=== PATIENT | male | born 1935 | race Caucasian/White ===

== ENCOUNTER 2022-11-26 10:04 | Inpatient (IN) | payer MEDICARE, OTHER ==
[~2022-11-26] VITALS: Ht 175.3 cm; Wt 104.0 kg
[2022-11-26] VITALS (21 sets, daily range): BP systolic 93–137; BP diastolic 30–67
[2022-11-26] MEDS ORDERED: pantoprazole 40mg IV 80 MG in normal saline 100ml IV soln 100 ML IV ONE (11:10)
[2022-11-26] MEDS ORDERED: normal saline 1000ML IV soln IVB ONE (11:10)
[2022-11-26] MEDS ORDERED: ondansetron/PF 4mg/2ml inj IV ONE (11:10)
[2022-11-26 11:16] LABS: BASOPHILS # (AUTO) 0.1 X10'3 (0-0.2); BASOPHILS % (AUTO) 0.3 % (0-1); EOSINOPHILS % (AUTO) 0.2 % (0-6); LYMPHOCYTES # (AUTO) 1.4 X10'3 (1.1-4.8); LYMPHOCYTES % (AUTO) 7.6 % (21-51); MEAN CORPUSCULAR HEMOGLOBIN 20.7 PG (27.0-31.0); MEAN CORPUSCULAR HGB CONC 26.6 g/dL (33.0-36.5); MEAN PLATELET VOLUME 10.2 FL (7.4-10.4); MONOCYTES # (AUTO) 8.4 X10'3 (0-0.9); MONOCYTES % (AUTO) 44.1 % (2-12); NEUTROPHILS # (AUTO) 9.1 X10'3 (1.8-7.7); NEUTROPHILS % (AUTO) 47.8 % (42-75); RED CELL DISTRIBUTION WIDTH 20.6 % (11.5-14.5)
[2022-11-26 11:22] LABS: ALANINE AMINOTRANSFERASE 15 U/L (12-78); ALBUMIN 2.4 G/DL (3.4-5.0); ALBUMIN/GLOBULIN RATIO 0.8 (1.1-1.5); ALKALINE PHOSPHATASE 92 IU/L (46-116); ANION GAP 15 (8-16); ASPARTATE AMINO TRANSFERASE 12 U/L (10-37); BILIRUBIN,TOTAL 0.3 MG/DL (0.1-1.0); BLOOD UREA NITROGEN 59 MG/DL (7-18); BUN/CREATININE RATIO 24.1 (5.4-32.0); CALCIUM 7.3 MG/DL (8.5-10.1); CHLORIDE 114 MMOL/L (99-107); CREATININE 2.45 MG/DL (0.60-1.10); GLUCOSE 121 MG/DL (70-104); LIPASE < 50 U/L (73-393); POTASSIUM 4.7 MMOL/L (3.5-5.1); SODIUM 148 MMOL/L (135-145); TOTAL CARBON DIOXIDE 18.6 MMOL/L (24-32); TOTAL PROTEIN 5.4 G/DL (6.4-8.2); eGFR 25 ML/MIN
[2022-11-26 11:24] LABS: RED BLOOD COUNT 1.64 X10'6 (4.70-6.10); WHITE BLOOD COUNT 19.7 X10'3 (4.5-11.0)
[2022-11-26 11:25] LABS: PLATELET COUNT 117 X10'3 (140-440)
[2022-11-26] MEDS: morphine 4 MG/ML inj SYRINge IV PRN ×2 (11:26→15:46)
[2022-11-26 11:28] LABS: HEMATOCRIT 12.8 % (42.0-52.0); HEMOGLOBIN 3.4 g/dl (14.0-17.9)
[2022-11-26] MEDS ORDERED: CefTRIAXone 2gm/D5W 50ml BAG 50 ML IV ONE (11:35)
[2022-11-26 11:42] LABS: ANISOCYTOSIS 3+; ELLIPTOCYTES 1+; MICROCYTOSIS 1+; NUCLEATED RED BLOOD CELLS 2 /100WBC (0-0); PLATELET ESTIMATE DECREASED; TEAR DROP CELLS 1+; TOTAL CELLS COUNTED 100
[2022-11-26 11:43] LABS: HYPOCHROMASIA 2+
[2022-11-26 12:34] LABS: MEAN CORPUSCULAR HEMOGLOBIN 19.8 PG (27.0-31.0); MEAN CORPUSCULAR HGB CONC 24.8 g/dL (33.0-36.5); MEAN PLATELET VOLUME 10.3 FL (7.4-10.4); PLATELET COUNT 109 X10'3 (140-440); RED BLOOD COUNT 1.41 X10'6 (4.70-6.10); RED CELL DISTRIBUTION WIDTH 20.7 % (11.5-14.5)
[2022-11-26 12:37] LABS: HEMATOCRIT 11.3 % (42.0-52.0); HEMOGLOBIN 2.8 g/dl (14.0-17.9)
[2022-11-26] MEDS: octreotide inj. 1,250 MCG in normal saline 250ml IV soln 243.75 ML IV SCH ×2 (12:50→20:41)
[2022-11-26] MEDS ORDERED: midazolam 100mg in NS 100ml 100 ML IV PRN (12:55)
--- NOTE | 2022-11-26 13:03 | NUR ---
1238 pulseless CPRinitiated 970ml blood transfusion increased 1240 bicarb and epi given 1241 rythmn check PEA epi 1242 intubation 1244 positve color change, 23 cm to teeth rythmn check sinus tach CPR cessation rapid bllod transfusion started. 3 units infused at 0110
[2022-11-26 13:09] LABS: ABG HCO3 13.8 mmol/L (22.0-26.0); ABG PCO2 (T) 42.4 mmHg (35.0-48.0); ABG PO2 (T) 430.5 mmHg (75.0-100.0); ALLEN'S TEST POSITIVE; PATIENT TEMPERATURE 36.4; PEEP 5 cm H2O; RESPIRATORY RATE 18 b/min; TIDAL VOLUME 500 mL; TOTAL HEMOGLOBIN < 4.7 G/dl (14.0-17.9)
--- NOTE | 2022-11-26 13:14 | NUR ---
notified of current status
[2022-11-26] MEDS ORDERED: CALCIUM GLUC 1gm/50ml NACL,iso 50 ML IV ONE (13:25)
[2022-11-26] MEDS ORDERED: tranexamic acid inj. 1,000 MG in normal saline 100ml IV soln 90 ML IV ONE (13:30)
[2022-11-26] MEDS: FENTANYL-0.9 % NACL/PF 100 ML IV PRN ×3 (13:57→21:26)
[2022-11-26] MEDS ORDERED: fentaNYL/PF 50MCG/1 ML 2ML syringe ONE (14:04)
[2022-11-26] MEDS ORDERED: MIDAZolam 1 MG/ML 5ML VIAL ONE (14:04)
[2022-11-26 14:05] LABS: HEMATOCRIT 23.4 % (42.0-52.0); MEAN CORPUSCULAR HEMOGLOBIN 23.5 PG (27.0-31.0); MEAN CORPUSCULAR HGB CONC 27.3 g/dL (33.0-36.5); MEAN CORPUSCULAR VOLUME 86.1 FL (78-98); MEAN PLATELET VOLUME 10.5 FL (7.4-10.4); PLATELET COUNT 86 X10'3 (140-440); RED BLOOD COUNT 2.72 X10'6 (4.70-6.10); RED CELL DISTRIBUTION WIDTH 19.6 % (11.5-14.5); WHITE BLOOD COUNT 24.4 X10'3 (4.5-11.0)
[2022-11-26 14:07] LABS: HEMOGLOBIN 6.4 g/dl (14.0-17.9)
[2022-11-26] MEDS: NORepinephrine 8mg/ 250ml NS 250 ML IV SCH ×2 (14:55→20:40)
[2022-11-26] MEDS ORDERED: mag hydrox/Alum hydrox/simeth 30ml oral suspension PO PRN (15:05)
[2022-11-26] MEDS ORDERED: LIDOcaine 2% 10ml TOPICAL JELLY (Urojet) TP ONE (15:05)
[2022-11-26] MEDS ORDERED: potassium Cl 40MEQ/1/2NS 520ml 520 ML IV PRN (15:05)
[2022-11-26] MEDS ORDERED: magnesium Cl slow-release 64mg tablet PO PRN (15:05)
[2022-11-26] MEDS ORDERED: potassium Cl 20 mEq SR tablet PO PRN ×2 (15:05)
[2022-11-26] MEDS ORDERED: acetaminophen 325mg tablet PO PRN (15:05)
[2022-11-26] MEDS ORDERED: magnesium hydroxide 30ml (MOM) UD suspension PO PRN (15:05)
[2022-11-26] MEDS ORDERED: magnesium 4gm in 100ml NS 100 ML IV PRN (15:05)
[2022-11-26] MEDS ORDERED: ondansetron/PF 4mg/2ml inj IV PRN (15:05)
--- NOTE | 2022-11-26 15:40 | NUR ---
to floor 1525. On norepi, 4th unit of PRBC finished on the way, bolusing 1L NS now. on Norepi at 0.1mcg/kg/min. TXA was done infusing aswell. GI nurses present with equipment to scope patient. 1540 MD in to scope ptl.
[2022-11-26] MEDS ORDERED: LidoCAINE 2% Topical Jelly 11mL syringe TOP ONE (15:45)
[2022-11-26] MEDS: normal saline 1000ml 1,000 ML IV SCH ×2 (15:47→21:45)
[2022-11-26] MEDS ORDERED: heparin, porcine 5000 units/ml vial SQ SCH (16:00)
[2022-11-26] MEDS: pantoprazole 40MG/NS 100ML BAG 100 ML IV SCH ×2 (16:00→21:26)
[2022-11-26] MEDS ORDERED: epiNEPHrine 0.1mg/ml 10ml syringe ONE (16:25)
[2022-11-26] MEDS ORDERED: NO HOME MEDS (16:54)
[2022-11-26] MEDS ORDERED: ipratropium/albuterol 3ml nebule ONE (16:54)
[2022-11-26] MEDS: ipratropium/albuterol 3ml nebule NEB SCH ×3 (16:56→23:34)
[2022-11-26 17:18] LABS: LYMPHOCYTES # (AUTO) 1.2 X10'3 (1.1-4.8); MONOCYTES # (AUTO) 12.2 X10'3 (0-0.9); PLATELET COUNT 96 X10'3 (140-440)
[2022-11-26 17:19] LABS: BASOPHILS % (AUTO) 0.1 % (0-1); EOSINOPHILS % (AUTO) 0.1 % (0-6); LYMPHOCYTES % (AUTO) 4.1 % (21-51); MEAN PLATELET VOLUME 10.3 FL (7.4-10.4); MONOCYTES % (AUTO) 41.9 % (2-12); NEUTROPHILS # (AUTO) 15.6 X10'3 (1.8-7.7); NEUTROPHILS % (AUTO) 53.8 % (42-75); RED CELL DISTRIBUTION WIDTH 18.1 % (11.5-14.5)
[2022-11-26 17:31] LABS: ALANINE AMINOTRANSFERASE 250 U/L (12-78); ALBUMIN 2.3 G/DL (3.4-5.0); ALBUMIN/GLOBULIN RATIO 0.9 (1.1-1.5); ALKALINE PHOSPHATASE 93 IU/L (46-116); ANION GAP 11 (8-16); ASPARTATE AMINO TRANSFERASE 233 U/L (10-37); BILIRUBIN,TOTAL 1.1 MG/DL (0.1-1.0); BLOOD UREA NITROGEN 62 MG/DL (7-18); BUN/CREATININE RATIO 28.7 (5.4-32.0); CALCIUM 6.5 MG/DL (8.5-10.1); CHLORIDE 117 MMOL/L (99-107); CREATININE 2.16 MG/DL (0.60-1.10); GLUCOSE 175 MG/DL (70-104); SODIUM 149 MMOL/L (135-145); TOTAL CARBON DIOXIDE 20.6 MMOL/L (24-32); TOTAL PROTEIN 4.9 G/DL (6.4-8.2); eGFR 29 ML/MIN
[2022-11-26] MEDS ORDERED: digoxin 250mcg/ml 2ml ampule IV STA (17:36)
--- NOTE | 2022-11-26 17:48 | NUR ---
Md aware of HR 160. Giving 2 more units PRBC. Trying Dig 500mcg as he believes it may be Aflutter. LA down, making good urine.
[2022-11-26] MEDS: propofol 1000mg/100ml bottle 100 ML IV SCH (17:56)
[2022-11-26 18:26] LABS: HEMATOCRIT 24.5 % (42.0-52.0); HEMOGLOBIN 7.3 g/dl (14.0-17.9); MEAN CORPUSCULAR HEMOGLOBIN 22.8 PG (27.0-31.0); MEAN CORPUSCULAR HGB CONC 29.6 g/dL (33.0-36.5); MEAN CORPUSCULAR VOLUME 77.2 FL (78-98); RED BLOOD COUNT 3.18 X10'6 (4.70-6.10)
--- NOTE | 2022-11-26 18:35 | NUR ---
I have received report and assumed care of an 87 year old male admitted earlier in the day from the ER department with dyspnea, GIB (Hgb 2.8) and a breife code blue with CPR. Dr. Foley preformed a bedside endoscopy, please see his notes for finding and treatment. Pt is on Diprivan and fentanyl for sedation and pain management, Protonix and Sandostatin for GIB, Levophed via CVL to keep MAP greater then 65. Per MD orders cooling blanket in place to keep Temperature around 37 degrees. Pt has large amount of white creamy secretions via ET suctioning. Pt opens eyes to painful stimuli. Pt is in a ST with moments of Afib with RVR rate up to 160. fowler cath in place to gravity. Assessment complete.
[2022-11-26 18:41] LABS: NUCLEATED RED BLOOD CELLS 3 /100WBC (0-0); PLATELET ESTIMATE DECREASED; TOTAL CELLS COUNTED 100
[2022-11-26 18:42] LABS: ANISOCYTOSIS 3+; ELLIPTOCYTES 1+; MICROCYTOSIS 13; TEAR DROP CELLS 1+
[2022-11-26 18:45] LABS: APTT 34 SECONDS (22-32)
[2022-11-26] MEDS: K and/or MAG REPLACEMENT MC SCH (20:00)
[2022-11-26] MEDS: docusate sod 100mg capsule PO SCH (20:00)
[2022-11-26 22:43] LABS: COLOR,URINE YELLOW (Yellow); GLUCOSE, URINE NEGATIVE (Neg); KETONES,URINE NEGATIVE (Neg); LEUKOCYTE ESTERASE ,URINE NEGATIVE (Neg); NITRITES, URINE NEGATIVE (Neg); OCCULT BLOOD,URINE MODERATE (Neg); PH,URINE 5.5 (4.8-8.0); PROTEIN,URINE 30 mg/dl (Neg); UROBILINOGEN,URINE 0.2 E.U/dL (0.2-1.0)
[2022-11-26 22:45] LABS: EOSINOPHILS % (AUTO) 0 % (0-6); HEMOGLOBIN 10.1 g/dl (14.0-17.9); LYMPHOCYTES # (AUTO) 0.5 X10'3 (1.1-4.8)
[2022-11-26 22:50] LABS: BASOPHILS # (AUTO) 0.1 X10'3 (0-0.2); BASOPHILS % (AUTO) 0.3 % (0-1); HEMATOCRIT 32.5 % (42.0-52.0); MEAN CORPUSCULAR HEMOGLOBIN 25.7 PG (27.0-31.0); MEAN CORPUSCULAR HGB CONC 31.1 g/dL (33.0-36.5); MEAN CORPUSCULAR VOLUME 82.8 FL (78-98); MEAN PLATELET VOLUME 10.5 FL (7.4-10.4); MONOCYTES # (AUTO) 18.2 X10'3 (0-0.9); MONOCYTES % (AUTO) 38.8 % (2-12); NEUTROPHILS # (AUTO) 28.1 X10'3 (1.8-7.7); NEUTROPHILS % (AUTO) 59.9 % (42-75); PLATELET COUNT 83 X10'3 (140-440); RED BLOOD COUNT 3.93 X10'6 (4.70-6.10); RED CELL DISTRIBUTION WIDTH 18.4 % (11.5-14.5)
[2022-11-26 22:54] LABS: CLARITY,URINE SLIGHTLY CLOUDY (Clear); UA COLLECTION TYPE OTHER
[2022-11-26 22:56] LABS: HYALINE CASTS 0-3 /LPF (NEGATIVE); SQUAMOUS EPITHELIAL CELL,UR NONE SEEN /LPF (FEW); WBC,URINE NONE SEEN /HPF (0-4)
[2022-11-26 22:57] LABS: AMORPHOUS URATES 1+; BACTERIA,URINE NONE SEEN /HPF (Neg)
[2022-11-26] MEDS ORDERED: levoFLOXACIN-Levaquin 750MG/D5 150 ML IV STA (23:07)
--- NOTE | 2022-11-26 23:23 | NUR ---
spoke to Dr. marion regarding elevated wbc new orders for antibiotic
[2022-11-27] VITALS (34 sets, daily range): BP systolic 93–144; BP diastolic 27–54
[2022-11-27] MEDS: normal saline 1000ml 1,000 ML IV SCH
[2022-11-27 00:43] LABS: NUCLEATED RED BLOOD CELLS 2 /100WBC (0-0); TOTAL CELLS COUNTED 100
[2022-11-27 00:44] LABS: ANISOCYTOSIS 2+; PLATELET ESTIMATE DECREASED
[2022-11-27 00:48] LABS: BURR CELLS 1+; ELLIPTOCYTES FEW; MICROCYTOSIS 1+
[2022-11-27 00:49] LABS: SCHISTOCYTES FEW
[2022-11-27 00:50] LABS: POLYCHROMASIA FEW
[2022-11-27 00:52] LABS: HYPOCHROMASIA 1+
[2022-11-27 03:03] LABS: EOSINOPHILS % (AUTO) 0 % (0-6); HEMOGLOBIN 9.2 g/dl (14.0-17.9); LYMPHOCYTES # (AUTO) 0.6 X10'3 (1.1-4.8); LYMPHOCYTES % (AUTO) 1.1 % (21-51)
[2022-11-27 03:09] LABS: BASOPHILS % (AUTO) 0.1 % (0-1); HEMATOCRIT 30.5 % (42.0-52.0); MEAN CORPUSCULAR HEMOGLOBIN 25.1 PG (27.0-31.0); MEAN CORPUSCULAR HGB CONC 30.2 g/dL (33.0-36.5); MEAN PLATELET VOLUME 10.6 FL (7.4-10.4); MONOCYTES # (AUTO) 15.9 X10'3 (0-0.9); MONOCYTES % (AUTO) 30.9 % (2-12); NEUTROPHILS % (AUTO) 67.9 % (42-75); PLATELET COUNT 76 X10'3 (140-440); RED BLOOD COUNT 3.67 X10'6 (4.70-6.10)
[2022-11-27] MEDS: ipratropium/albuterol 3ml nebule NEB SCH ×6 (03:17→22:59)
[2022-11-27 03:23] LABS: APTT 34 SECONDS (22-32)
[2022-11-27 03:28] LABS: WHITE BLOOD COUNT 51.6 X10'3 (4.5-11.0)
[2022-11-27 03:36] LABS: ALANINE AMINOTRANSFERASE 211 U/L (12-78); ALBUMIN 1.9 G/DL (3.4-5.0); ALBUMIN/GLOBULIN RATIO 0.7 (1.1-1.5); ALKALINE PHOSPHATASE 85 IU/L (46-116); ANION GAP 12 (8-16); ASPARTATE AMINO TRANSFERASE 172 U/L (10-37); BILIRUBIN,TOTAL 0.9 MG/DL (0.1-1.0); BLOOD UREA NITROGEN 58 MG/DL (7-18); CALCIUM 6.4 MG/DL (8.5-10.1); CHLORIDE 120 MMOL/L (99-107); CREATININE 2.15 MG/DL (0.60-1.10); GLUCOSE 170 MG/DL (70-104); MAGNESIUM 1.7 MG/DL (1.5-2.4); PHOSPHORUS 4.5 MG/DL (2.3-4.5); POTASSIUM 4.1 MMOL/L (3.5-5.1); SODIUM 151 MMOL/L (135-145); TOTAL CARBON DIOXIDE 18.9 MMOL/L (24-32); TOTAL PROTEIN 4.6 G/DL (6.4-8.2); TRIGLYCERIDES 110 MG/DL (20-135); eGFR 29 ML/MIN
[2022-11-27] MEDS: FENTANYL-0.9 % NACL/PF 100 ML IV PRN ×2 (03:45→18:14)
[2022-11-27] MEDS: pantoprazole 40MG/NS 100ML BAG 100 ML IV SCH ×5 (03:45→18:15)
[2022-11-27 03:51] LABS: ABG BASE EXCESS -11.2 mmol/L (-2.0-2.0); ABG HCO3 16.4 mmol/L (22.0-26.0); ABG PCO2 (T) 43.1 mmHg (35.0-48.0); ALLEN'S TEST Modified; FCOHb 1.1 % (0.0-3.9); FMetHb 0.5 % (0.0-1.5); FO2Hb 92.5 % (94-97); PATIENT TEMPERATURE 36.8; TOTAL HEMOGLOBIN 10.5 G/dl (14.0-17.9)
--- NOTE | 2022-11-27 04:00 | NUR ---
spoke to dr de la rosa regarding abg results and elevated WBC greater then 50. no new orders regarding WBC however bicarb drip order to correct ABG.
[2022-11-27] MEDS ORDERED: SODIUM BICARB 150mEq/D5W 1L 1,000 ML IV ONE ×2 (04:05→14:20)
--- NOTE | 2022-11-27 06:15 | NUR ---
report given to rec rn plan of care reviewed
--- NOTE | 2022-11-27 06:30 | NUR ---
Patient in room ICU 2043. I have received report from bj and had the opportunity to ask questions and assume patient care.
[2022-11-27 06:38] LABS: RESPIRATORY RATE 18 b/min
[2022-11-27 06:39] LABS: PEEP 5 cm H2O; TIDAL VOLUME 500 mL
[2022-11-27] MEDS: docusate sod 100mg capsule PO SCH (08:00)
[2022-11-27] MEDS ORDERED: levoFLOXACIN-Levaquin 750MG/D5 150 ML IV SCH (08:00)
[2022-11-27] MEDS: K and/or MAG REPLACEMENT MC SCH ×2 (08:00→20:00)
[2022-11-27] MEDS: CefTRIAXone/D5W-Rocephin 1gm 50 ML IV SCH (08:08)
[2022-11-27] MEDS: propofol 1000mg/100ml bottle 100 ML IV SCH (09:20)
--- NOTE | 2022-11-27 10:00 | NUR ---
pt opens eyes- doesnt follow commands or focus. questionable corneal reflex, no cough or gag. large frothy creamy white sx via ett. bs 214. update to md, hyperglycemic protocol ordered, serial h and h, iv changed r/t increased sodium.
[2022-11-27] MEDS ORDERED: furosemide 40mg/4ml inj IV ONE (11:10)
[2022-11-27] MEDS ORDERED: glucagon, human recombinant 1mg kit SUBCUT PRN (11:15)
[2022-11-27] MEDS ORDERED: DEXTROSE 15 GM of carb/4 tabs (each vial/BOTTLE has 4 tablets) PO PRN ×2 (11:15)
[2022-11-27] MEDS ORDERED: dextrose 50%-water 50ml dispensing syringe IV PRN ×2 (11:15)
[2022-11-27] MEDS ORDERED: MESSAGE TO PHARMACY PO ONE (11:15)
[2022-11-27] MEDS ORDERED: sodium chloride 0.45% 1,000 ML IV SCH (11:25)
[2022-11-27 12:07] LABS: HEMOGLOBIN A1C 5.2 % (4.5-6.2)
[2022-11-27 12:19] LABS: HEMATOCRIT 31.1 % (42.0-52.0); HEMOGLOBIN 9.4 g/dl (14.0-17.9); MEAN CORPUSCULAR HGB CONC 30.2 g/dL (33.0-36.5); MEAN PLATELET VOLUME 10.5 FL (7.4-10.4); PLATELET COUNT 77 X10'3 (140-440); RED BLOOD COUNT 3.75 X10'6 (4.70-6.10); RED CELL DISTRIBUTION WIDTH 18.1 % (11.5-14.5)
--- NOTE | 2022-11-27 12:27 | NUR ---
Initial: Pt admit for GIB. Per ED note a code was called with CPR initiated and pt ultimately intubated. Pt s/p EGD with findings of multiple duodenal ulcers which were clipped per MD note. Propofol visualized at bedside to be running at 4.9 mL/hr providing 129 kcal/day. OGT in place though no TF consult at this time. TF recs below for if expected prolonged intubation and to receive nutrition support. D/w MD patient's hypernatremia, pt now started on 5NS at 85 mL/hr per MD. Noted BG range 121-214 mg/dL since admit with no PMH DM. A1c obtained resulted in 5.2%, not suggestive of DM per ADA guidelines. LBM 11/26 documented as copious. Will continue to follow closely. Recommendations: 1) IF TF and Propofol at 4.9 mL/hr (129 kcal/day), continuous Vital AF with 80 mL/hr goal rate to provide 1920 mL volume/day, 2304 kcal, 144 g protein, and 1557 mL water 2) Monitor Propofol and need to adjust recs 3) IF TF, additional 150 mL water flush Q4H; monitor serum Na 4) IF TF, prealbumin q Saturday/; daily scaled weights 5) Bowel care per MD 6) Advance to regular diet as medically indicated following extubation. Addendum: 11/27/22 at [address] Amended: Links added.
[2022-11-27 12:45] LABS: WHITE BLOOD COUNT 60.6 X10'3 (4.5-11.0)
[2022-11-27 13:24] LABS: ANISOCYTOSIS 2+; NUCLEATED RED BLOOD CELLS 1 /100WBC (0-0); PLATELET ESTIMATE DECREASED; TOTAL CELLS COUNTED 100
[2022-11-27 13:25] LABS: ELLIPTOCYTES FEW; LARGE PLATELETS FEW; MICROCYTOSIS 1+
[2022-11-27 13:26] LABS: BURR CELLS FEW; POLYCHROMASIA FEW
[2022-11-27] MEDS ORDERED: octreotide inj. 500 MCG in normal saline 100ml IV soln 97.5 ML IV SCH (13:50)
[2022-11-27] MEDS: octreotide inj. 500 MCG in normal saline 100ml IV soln 97.5 ML IV SCH (14:15)
[2022-11-27] MEDS: insulin Lispro (HumaLOG) vial - multi-dose SQ SCH ×2 (14:51→20:26)
[2022-11-27 15:54] LABS: ABG BASE EXCESS -11.3 mmol/L (-2.0-2.0); ABG PCO2 (T) 49.1 mmHg (35.0-48.0); ABG PO2 (T) 73.1 mmHg (75.0-100.0); ALLEN'S TEST POSITIVE; FCOHb 0.1 % (0.0-3.9); FMetHb 0.4 % (0.0-1.5); FO2Hb 92.5 % (94-97); PEEP 5 cm H2O; RESPIRATORY RATE 18 b/min; TIDAL VOLUME 500 mL; TOTAL HEMOGLOBIN 10.5 G/dl (14.0-17.9)
--- NOTE | 2022-11-27 16:00 | NUR ---
cooling blanket off and on to keep temp less than 37. abgs reported to md. vent changes , iv changed, lasix now ordered rt. pt now moving both arms. hgb stable
[2022-11-27] MEDS: dextrose 5%-water 1,000 ML IV SCH (16:25)
[2022-11-27] MEDS: sodium bicarbonate (8.4%) inj. 150 MEQ in dextrose 5%-water 850 ML IV SCH ×2 (16:25→21:52)
[2022-11-27] MEDS: furosemide 20 MG/2 ML vial IV SCH ×2 (17:48→20:22)
[2022-11-27 18:06] LABS: HEMATOCRIT 29.4 % (42.0-52.0); MEAN CORPUSCULAR HEMOGLOBIN 25.1 PG (27.0-31.0); MEAN CORPUSCULAR HGB CONC 30.6 g/dL (33.0-36.5); MEAN CORPUSCULAR VOLUME 82.1 FL (78-98); MEAN PLATELET VOLUME 10.2 FL (7.4-10.4); PLATELET COUNT 75 X10'3 (140-440); RED BLOOD COUNT 3.58 X10'6 (4.70-6.10); RED CELL DISTRIBUTION WIDTH 18.5 % (11.5-14.5)
[2022-11-27 18:10] LABS: WHITE BLOOD COUNT 56.9 X10'3 (4.5-11.0)
--- NOTE | 2022-11-27 18:20 | NUR ---
Patient in room ICU 2043. I have received report from Ana FRASER and had the opportunity to ask questions and assume patient care.
[2022-11-27 19:32] LABS: ABG HCO3 20.7 mmol/L (22.0-26.0); ABG OXYGEN SATURATION 90.1 % (94-97); ABG PCO2 (T) 45.5 mmHg (35.0-48.0); ABG PO2 (T) 58.2 mmHg (75.0-100.0); ALLEN'S TEST Modified; FCOHb 0.1 % (0.0-3.9); FMetHb 0.4 % (0.0-1.5); FO2Hb 89.6 % (94-97); PATIENT TEMPERATURE 36.8; PEEP 5 cm H2O; RESPIRATORY RATE 18 b/min; TIDAL VOLUME 500 mL; TOTAL HEMOGLOBIN 9.8 G/dl (14.0-17.9)
[2022-11-27] MEDS ORDERED: docusate sodium 100mg/10ml UD cup GT SCH (20:05)
[2022-11-27] MEDS: docusate sodium 100mg/10ml UD cup OGT SCH (20:22)
[2022-11-27] MEDS: insulin glargine (Lantus) pen - multi-dose SQ SCH (20:27)
[2022-11-27 21:37] LABS: ALANINE AMINOTRANSFERASE 150 U/L (12-78); ALBUMIN 1.6 G/DL (3.4-5.0); ALBUMIN/GLOBULIN RATIO 0.6 (1.1-1.5); ALKALINE PHOSPHATASE 83 IU/L (46-116); ANION GAP 9 (8-16); ASPARTATE AMINO TRANSFERASE 50 U/L (10-37); BILIRUBIN,TOTAL 0.4 MG/DL (0.1-1.0); BLOOD UREA NITROGEN 56 MG/DL (7-18); BUN/CREATININE RATIO 22.1 (5.4-32.0); CALCIUM 6.7 MG/DL (8.5-10.1); CHLORIDE 115 MMOL/L (99-107); CREATININE 2.53 MG/DL (0.60-1.10); GLUCOSE 240 MG/DL (70-104); MAGNESIUM 1.5 MG/DL (1.5-2.4); PHOSPHORUS 4.8 MG/DL (2.3-4.5); POTASSIUM 3.4 MMOL/L (3.5-5.1); SODIUM 150 MMOL/L (135-145); TOTAL CARBON DIOXIDE 25.7 MMOL/L (24-32); TOTAL PROTEIN 4.3 G/DL (6.4-8.2); eGFR 24 ML/MIN
[2022-11-27] MEDS: potassium Cl 40MEQ/270ML bag 270 ML IV PRN (23:14)
[2022-11-27] MEDS: NORepinephrine 8mg/ 250ml NS 250 ML IV SCH (23:14)
[2022-11-28] VITALS (30 sets, daily range): BP systolic 98–173; BP diastolic 40–89
[2022-11-28] MEDS: pantoprazole 40MG/NS 100ML BAG 100 ML IV SCH ×5 (00:27→21:23)
[2022-11-28] MEDS: furosemide 20 MG/2 ML vial IV SCH ×4 (02:04→21:39)
[2022-11-28] MEDS: insulin Lispro (HumaLOG) vial - multi-dose SQ SCH ×3 (02:08→21:48)
[2022-11-28 02:20] LABS: HEMOGLOBIN 8.7 g/dl (14.0-17.9); MEAN PLATELET VOLUME 10.6 FL (7.4-10.4); MONOCYTES # (AUTO) 9.5 X10'3 (0-0.9)
[2022-11-28 02:25] LABS: BASOPHILS % (AUTO) 0.1 % (0-1); EOSINOPHILS # (AUTO) 0.1 X10'3 (0-0.9); EOSINOPHILS % (AUTO) 0.2 % (0-6); HEMATOCRIT 27.5 % (42.0-52.0); LYMPHOCYTES # (AUTO) 0.5 X10'3 (1.1-4.8); LYMPHOCYTES % (AUTO) 1.1 % (21-51); MEAN CORPUSCULAR HEMOGLOBIN 25.5 PG (27.0-31.0); MEAN CORPUSCULAR HGB CONC 31.6 g/dL (33.0-36.5); MEAN CORPUSCULAR VOLUME 80.7 FL (78-98); MONOCYTES % (AUTO) 20.6 % (2-12); NEUTROPHILS # (AUTO) 35.7 X10'3 (1.8-7.7); PLATELET COUNT 71 X10'3 (140-440); RED BLOOD COUNT 3.41 X10'6 (4.70-6.10); RED CELL DISTRIBUTION WIDTH 18.3 % (11.5-14.5)
[2022-11-28 02:28] LABS: APTT 40 SECONDS (22-32)
[2022-11-28 02:31] LABS: WHITE BLOOD COUNT 45.8 X10'3 (4.5-11.0)
[2022-11-28 02:34] LABS: ALANINE AMINOTRANSFERASE 149 U/L (12-78); ALBUMIN 1.6 G/DL (3.4-5.0); ALBUMIN/GLOBULIN RATIO 0.6 (1.1-1.5); ALKALINE PHOSPHATASE 88 IU/L (46-116); ANION GAP 6 (8-16); ASPARTATE AMINO TRANSFERASE 49 U/L (10-37); BILIRUBIN,TOTAL 0.4 MG/DL (0.1-1.0); BLOOD UREA NITROGEN 54 MG/DL (7-18); BUN/CREATININE RATIO 21.8 (5.4-32.0); CALCIUM 6.5 MG/DL (8.5-10.1); CHLORIDE 115 MMOL/L (99-107); CREATININE 2.48 MG/DL (0.60-1.10); GLUCOSE 224 MG/DL (70-104); MAGNESIUM 1.5 MG/DL (1.5-2.4); PHOSPHORUS 4.8 MG/DL (2.3-4.5); POTASSIUM 3.5 MMOL/L (3.5-5.1); SODIUM 151 MMOL/L (135-145); TOTAL CARBON DIOXIDE 29.9 MMOL/L (24-32); TOTAL PROTEIN 4.5 G/DL (6.4-8.2); eGFR 25 ML/MIN
[2022-11-28] MEDS: ipratropium/albuterol 3ml nebule NEB SCH ×6 (03:24→23:23)
[2022-11-28 04:14] LABS: ABG BASE EXCESS -0.8 mmol/L (-2.0-2.0); ABG HCO3 25.5 mmol/L (22.0-26.0); ABG OXYGEN SATURATION 94.4 % (94-97); ABG PCO2 (T) 49.5 mmHg (35.0-48.0); ABG PO2 (T) 73.6 mmHg (75.0-100.0); ALLEN'S TEST Modified; FCOHb 0.3 % (0.0-3.9); FMetHb 0.4 % (0.0-1.5); FO2Hb 93.7 % (94-97); PEEP 5 cm H2O; RESPIRATORY RATE 18 b/min; TIDAL VOLUME 500 mL; TOTAL HEMOGLOBIN 9.7 G/dl (14.0-17.9)
[2022-11-28] MEDS: sodium bicarbonate (8.4%) inj. 150 MEQ in dextrose 5%-water 850 ML IV SCH ×3 (04:40→16:05)
[2022-11-28] MEDS: propofol 1000mg/100ml bottle 100 ML IV SCH (04:41)
[2022-11-28] MEDS: FENTANYL-0.9 % NACL/PF 100 ML IV PRN (04:42)
[2022-11-28] MEDS: dextrose 5%-water 1,000 ML IV SCH ×2 (05:45→09:00)
--- NOTE | 2022-11-28 06:27 | NUR ---
Problems reprioritized. Patient report given, questions answered & plan of care reviewed with Ana FRASER.
--- NOTE | 2022-11-28 06:30 | NUR ---
Patient in room ICU 2043. I have received report from drew and had the opportunity to ask questions and assume patient care.
[2022-11-28 07:07] LABS: HEMOGLOBIN 8.3 g/dl (14.0-17.9); MEAN CORPUSCULAR HEMOGLOBIN 25.1 PG (27.0-31.0); MEAN CORPUSCULAR HGB CONC 30.9 g/dL (33.0-36.5); MEAN CORPUSCULAR VOLUME 81.1 FL (78-98); MEAN PLATELET VOLUME 10.6 FL (7.4-10.4); PLATELET COUNT 71 X10'3 (140-440); RED BLOOD COUNT 3.33 X10'6 (4.70-6.10); RED CELL DISTRIBUTION WIDTH 19.1 % (11.5-14.5)
[2022-11-28 07:11] LABS: WHITE BLOOD COUNT 39.5 X10'3 (4.5-11.0)
[2022-11-28] MEDS: K and/or MAG REPLACEMENT MC SCH ×2 (08:00→20:00)
[2022-11-28] MEDS: CefTRIAXone/D5W-Rocephin 1gm 50 ML IV SCH (09:51)
[2022-11-28] MEDS: octreotide inj. 500 MCG in normal saline 100ml IV soln 97.5 ML IV SCH (09:56)
[2022-11-28] MEDS: docusate sodium 100mg/10ml UD cup OGT SCH ×2 (10:00→21:40)
--- NOTE | 2022-11-28 11:00 | NUR ---
fentanyl and diprivan off at 0900, pt with twitching face and upper body. questionable cooling blanket coldness or neuro response. md talked with son and - possible poor prognosis. pt opens eyes and looks side to side, doesnt focus. moves arms occ, not to commands. cooling blanket replaced 38.2 to 36.9.
[2022-11-28 13:26] LABS: MEAN CORPUSCULAR HEMOGLOBIN 25.2 PG (27.0-31.0); MEAN CORPUSCULAR VOLUME 81.2 FL (78-98); PLATELET COUNT 72 X10'3 (140-440); RED BLOOD COUNT 3.57 X10'6 (4.70-6.10); RED CELL DISTRIBUTION WIDTH 19.1 % (11.5-14.5)
[2022-11-28 13:34] LABS: WHITE BLOOD COUNT 42.3 X10'3 (4.5-11.0)
[2022-11-28 19:01] LABS: HEMATOCRIT 28.5 % (42.0-52.0); HEMOGLOBIN 8.8 g/dl (14.0-17.9); MEAN CORPUSCULAR HEMOGLOBIN 24.9 PG (27.0-31.0); MEAN CORPUSCULAR HGB CONC 30.8 g/dL (33.0-36.5); MEAN CORPUSCULAR VOLUME 80.8 FL (78-98); MEAN PLATELET VOLUME 10.9 FL (7.4-10.4); PLATELET COUNT 71 X10'3 (140-440); RED BLOOD COUNT 3.52 X10'6 (4.70-6.10); RED CELL DISTRIBUTION WIDTH 19.3 % (11.5-14.5)
[2022-11-28] MEDS ORDERED: potassium Cl 40MEQ/270ML bag 270 ML IV ONE (19:30)
[2022-11-28] MEDS: insulin glargine (Lantus) pen - multi-dose SQ SCH (21:49)
[2022-11-29] VITALS (34 sets, daily range): BP systolic 88–163; BP diastolic 33–76
[2022-11-29] MEDS: pantoprazole 40MG/NS 100ML BAG 100 ML IV SCH ×4 (01:35→20:27)
[2022-11-29] MEDS: FENTANYL-0.9 % NACL/PF 100 ML IV PRN (01:36)
[2022-11-29] MEDS: propofol 1000mg/100ml bottle 100 ML IV SCH (01:38)
[2022-11-29] MEDS: sodium bicarbonate (8.4%) inj. 150 MEQ in dextrose 5%-water 850 ML IV SCH (01:45)
[2022-11-29 02:56] LABS: HEMOGLOBIN 8.2 g/dl (14.0-17.9); LYMPHOCYTES # (AUTO) 0.7 X10'3 (1.1-4.8); MEAN PLATELET VOLUME 10.8 FL (7.4-10.4); PLATELET COUNT 64 X10'3 (140-440)
[2022-11-29] MEDS: furosemide 20 MG/2 ML vial IV SCH ×4 (02:56→20:27)
[2022-11-29 02:58] LABS: BASOPHILS # (AUTO) 0.1 X10'3 (0-0.2); BASOPHILS % (AUTO) 0.3 % (0-1); EOSINOPHILS # (AUTO) 0.1 X10'3 (0-0.9); EOSINOPHILS % (AUTO) 0.2 % (0-6); LYMPHOCYTES % (AUTO) 2.5 % (21-51); MEAN CORPUSCULAR HEMOGLOBIN 25.7 PG (27.0-31.0); MEAN CORPUSCULAR HGB CONC 31.7 g/dL (33.0-36.5); MEAN CORPUSCULAR VOLUME 80.9 FL (78-98); MONOCYTES % (AUTO) 22.7 % (2-12); NEUTROPHILS # (AUTO) 19.7 X10'3 (1.8-7.7); NEUTROPHILS % (AUTO) 74.3 % (42-75); RED BLOOD COUNT 3.22 X10'6 (4.70-6.10); RED CELL DISTRIBUTION WIDTH 18.7 % (11.5-14.5)
[2022-11-29 03:08] LABS: WHITE BLOOD COUNT 26.6 X10'3 (4.5-11.0)
[2022-11-29 03:10] LABS: ALANINE AMINOTRANSFERASE 108 U/L (12-78); ALBUMIN 1.6 G/DL (3.4-5.0); ALBUMIN/GLOBULIN RATIO 0.6 (1.1-1.5); ALKALINE PHOSPHATASE 89 IU/L (46-116); ANION GAP 4 (8-16); ASPARTATE AMINO TRANSFERASE 59 U/L (10-37); BILIRUBIN,TOTAL 0.5 MG/DL (0.1-1.0); BLOOD UREA NITROGEN 48 MG/DL (7-18); BUN/CREATININE RATIO 19.3 (5.4-32.0); CALCIUM 6.8 MG/DL (8.5-10.1); CHLORIDE 108 MMOL/L (99-107); CREATININE 2.49 MG/DL (0.60-1.10); GLUCOSE 137 MG/DL (70-104); MAGNESIUM 1.3 MG/DL (1.5-2.4); PHOSPHORUS 3.3 MG/DL (2.3-4.5); POTASSIUM 3.2 MMOL/L (3.5-5.1); SODIUM 149 MMOL/L (135-145); TOTAL CARBON DIOXIDE 37.4 MMOL/L (24-32); TOTAL PROTEIN 4.5 G/DL (6.4-8.2); eGFR 25 ML/MIN
[2022-11-29 03:32] LABS: APTT 37 SECONDS (22-32)
[2022-11-29] MEDS: ipratropium/albuterol 3ml nebule NEB SCH ×6 (04:00→23:37)
[2022-11-29 04:11] LABS: ANISOCYTOSIS 2+; NUCLEATED RED BLOOD CELLS 2 /100WBC (0-0); PLATELET ESTIMATE DECREASED; TOTAL CELLS COUNTED 100
[2022-11-29 04:12] LABS: LARGE PLATELETS FEW; MICROCYTOSIS 1+; POLYCHROMASIA FEW; TEAR DROP CELLS FEW
[2022-11-29 04:20] LABS: ABG BASE EXCESS 9.3 mmol/L (-2.0-2.0); ABG HCO3 34.4 mmol/L (22.0-26.0); ABG OXYGEN SATURATION 93.4 % (94-97); ABG PCO2 (T) 50.3 mmHg (35.0-48.0); ABG PO2 (T) 66.2 mmHg (75.0-100.0); ALLEN'S TEST Modified; FCOHb 0.3 % (0.0-3.9); FMetHb 0.3 % (0.0-1.5); FO2Hb 92.8 % (94-97); PATIENT TEMPERATURE 36.8; PEEP 5 cm H2O; RESPIRATORY RATE 24 b/min; TIDAL VOLUME 500 mL
[2022-11-29] MEDS: potassium Cl 40MEQ/270ML bag 270 ML IV PRN (05:31)
[2022-11-29] MEDS: octreotide inj. 500 MCG in normal saline 100ml IV soln 97.5 ML IV SCH (06:32)
--- NOTE | 2022-11-29 06:37 | NUR ---
Problems reprioritized. Patient report given, questions answered & plan of care reviewed with CHASE FRASER.
[2022-11-29] MEDS: K and/or MAG REPLACEMENT MC SCH ×2 (08:00→20:00)
[2022-11-29] MEDS: levoFLOXACIN-Levaquin 750MG/D5 150 ML IV SCH (08:14)
[2022-11-29] MEDS: CefTRIAXone/D5W-Rocephin 1gm 50 ML IV SCH (08:14)
[2022-11-29] MEDS: docusate sodium 100mg/10ml UD cup OGT SCH ×2 (08:15→20:27)
--- NOTE | 2022-11-29 13:59 | NUR ---
TF consult: Pt remains intubated and sedated with Propofol running at 2.454 mL/hr providing 65 kcal/day. Per EVELIO OGConcha with clear output. MD villareal beginning TF, see recs below. LBM 11/26, pt receiving routine bowel care. Will continue to follow and make recommendations as appropriate. Recommendations: 1) Given Propofol at 2.454 mL/hr (65 kcal/day), continuous Vital AF with 80 mL/hr goal rate to provide 1920 mL volume/day, 2304 kcal, 144 g protein, and 1557 mL water 2) Monitor Propofol and need to adjust recs 3) Additional 150 mL water flush Q4H; monitor serum Na 4) Prealbumin q Saturday/; daily scaled weights 5) Bowel care per 6) Advance to regular diet as medically indicated following extubation. Addendum: 11/29/22 at [address] Amended: Links added.
[2022-11-29] MEDS ORDERED: mag hydrox/Alum hydrox/simeth 30ml oral suspension OGT PRN (14:09)
[2022-11-29] MEDS ORDERED: DEXTROSE 15 GM of carb/4 tabs (each vial/BOTTLE has 4 tablets) OGT PRN ×2 (14:09)
[2022-11-29] MEDS ORDERED: POTASSIUM BICARB 20meq eff tab 20 MEQ TABLET.EFF OGT PRN ×2 (14:10→14:11)
[2022-11-29] MEDS ORDERED: magnesium hydroxide 30ml (MOM) UD suspension OGT PRN (14:10)
[2022-11-29] MEDS: dexmedetomidine inj. 400 MCG in normal saline 100ml IV soln 96 ML IV SCH ×2 (14:23→23:30)
[2022-11-29 15:04] LABS: PREALBUMIN 7.4 MG/DL (19-36)
--- NOTE | 2022-11-29 17:58 | NUR ---
Patient opens eyes to command. Nodded head yes in response to a question. Squeezed hand to command. Hemodynamically stable. TF started.
--- NOTE | 2022-11-29 18:30 | NUR ---
Patient in room ICU 2043. I have received report from CHASE FRASER and had the opportunity to ask questions and assume patient care.
[2022-11-29 19:40] LABS: MAGNESIUM 2.2 MG/DL (1.5-2.4)
[2022-11-29] MEDS ORDERED: potassium Cl 40MEQ/270ML bag 270 ML IV ONE ×2 (20:15→22:15)
[2022-11-29] MEDS: insulin glargine (Lantus) pen - multi-dose SQ SCH (21:00)
[2022-11-30] VITALS (36 sets, daily range): BP systolic 118–194; BP diastolic 40–76
[2022-11-30] MEDS: furosemide 20 MG/2 ML vial IV SCH ×4 (01:59→19:41)
[2022-11-30 02:39] LABS: EOSINOPHILS # (AUTO) 0.1 X10'3 (0-0.9); EOSINOPHILS % (AUTO) 0.4 % (0-6); LYMPHOCYTES # (AUTO) 0.5 X10'3 (1.1-4.8)
[2022-11-30 02:41] LABS: BASOPHILS # (AUTO) 0.1 X10'3 (0-0.2); BASOPHILS % (AUTO) 0.4 % (0-1); HEMATOCRIT 27.1 % (42.0-52.0); HEMOGLOBIN 8.5 g/dl (14.0-17.9); LYMPHOCYTES % (AUTO) 3.6 % (21-51); MEAN CORPUSCULAR HEMOGLOBIN 25.4 PG (27.0-31.0); MEAN CORPUSCULAR HGB CONC 31.3 g/dL (33.0-36.5); MEAN CORPUSCULAR VOLUME 81.4 FL (78-98); MEAN PLATELET VOLUME 11.1 FL (7.4-10.4); MONOCYTES # (AUTO) 3.8 X10'3 (0-0.9); MONOCYTES % (AUTO) 25.3 % (2-12); NEUTROPHILS # (AUTO) 10.5 X10'3 (1.8-7.7); NEUTROPHILS % (AUTO) 70.3 % (42-75); PLATELET COUNT 65 X10'3 (140-440); RED BLOOD COUNT 3.33 X10'6 (4.70-6.10); RED CELL DISTRIBUTION WIDTH 19.5 % (11.5-14.5)
[2022-11-30 02:58] LABS: ALANINE AMINOTRANSFERASE 83 U/L (12-78); ALBUMIN 1.5 G/DL (3.4-5.0); ALBUMIN/GLOBULIN RATIO 0.4 (1.1-1.5); ALKALINE PHOSPHATASE 88 IU/L (46-116); ANION GAP 6 (8-16); ASPARTATE AMINO TRANSFERASE 63 U/L (10-37); BILIRUBIN,TOTAL 0.6 MG/DL (0.1-1.0); BLOOD UREA NITROGEN 49 MG/DL (7-18); BUN/CREATININE RATIO 21.9 (5.4-32.0); CALCIUM 7.4 MG/DL (8.5-10.1); CHLORIDE 110 MMOL/L (99-107); CREATININE 2.24 MG/DL (0.60-1.10); GLUCOSE 101 MG/DL (70-104); PHOSPHORUS 3.3 MG/DL (2.3-4.5); POTASSIUM 3.3 MMOL/L (3.5-5.1); SODIUM 151 MMOL/L (135-145); TOTAL CARBON DIOXIDE 34.7 MMOL/L (24-32); TOTAL PROTEIN 4.9 G/DL (6.4-8.2); TRIGLYCERIDES 135 MG/DL (20-135); eGFR 28 ML/MIN
[2022-11-30] MEDS: propofol 1000mg/100ml bottle 100 ML IV SCH ×3 (03:00→23:45)
[2022-11-30] MEDS: ipratropium/albuterol 3ml nebule NEB SCH ×6 (03:15→23:21)
[2022-11-30 03:36] LABS: ABG HCO3 31.3 mmol/L (22.0-26.0); ABG OXYGEN SATURATION 92.3 % (94-97); ABG PO2 (T) 62.3 mmHg (75.0-100.0); ALLEN'S TEST Modified; FCOHb 0.1 % (0.0-3.9); FMetHb 0.1 % (0.0-1.5); FO2Hb 92.1 % (94-97); PEEP 5 cm H2O; RESPIRATORY RATE 24 b/min; TIDAL VOLUME 500 mL; TOTAL HEMOGLOBIN 9.2 G/dl (14.0-17.9)
[2022-11-30] MEDS: potassium Cl 40MEQ/270ML bag 270 ML IV PRN ×2 (04:16→15:20)
--- NOTE | 2022-11-30 06:18 | NUR ---
Problems reprioritized. Patient report given, questions answered & plan of care reviewed with CHASE FRASER.
[2022-11-30] MEDS: K and/or MAG REPLACEMENT MC SCH ×2 (07:19→19:31)
[2022-11-30] MEDS: CefTRIAXone/D5W-Rocephin 1gm 50 ML IV SCH (07:26)
[2022-11-30] MEDS: dexmedetomidine inj. 400 MCG in normal saline 100ml IV soln 96 ML IV SCH ×2 (07:27→19:06)
[2022-11-30] MEDS: docusate sodium 100mg/10ml UD cup OGT SCH ×2 (07:27→19:41)
[2022-11-30] MEDS: pantoprazole 40MG/NS 100ML BAG 100 ML IV SCH ×2 (08:00→20:23)
--- NOTE | 2022-11-30 14:48 | NUR ---
PRESSURE ULCER EDUCATION: DEFINITION: A pressure ulcer is an area of skin that breaks down when you stay in one position too long. The constant pressure against the skin reduces the blood flow to that area and the affected tissue dies. CAUSES: "Being bedridden or in a wheelchair "Fragile skin "Having a chronic condition, such as diabetes or vascular disease "Inability to move certain parts of your body without assistance "Older age "Incontinence of urine or stool SYMPTOMS: "A reddened area that DOES NOT turn white when pressed on - this can be the beginning of a pressure ulcer "A blister, deep sore or a crater - these can be advanced pressure ulcers FIRST AID: "Relieve the pressure on this area "Keep the area clean and dry "Call your primary doctor if you see any of the above symptoms "DO NOT massage the area "DO NOT use a donut shaped or ring shaped pillow- these actually interfere with the blood flow and cause complications PREVENTION: "Check for pressure ulcers everyday "Change position at least every two hours to relieve pressure "Use items that help relieve pressure- pillows, sheepskin, foam padding, and powders. "Keep skin clean and dry "Eat healthy well balanced meals "Exercise daily IF YOU SEE ANY OF THESE SYMPTOMS WHILE IN THE HOSPITAL - TELL YOUR NURSE IMMEDIATELY. IF YOU SEE ANY OF THESE SYMPTOMS WHILE AT HOME OR HAVE ANY QUESTIONS OR CONCERNS ABOUT PRESSURE ULCERS - CALL YOUR PRIMARY DOCTOR IMMEDIATELY. Addendum: 11/30/22 at 1449 by Winter Vitale RN Amended: Links added.
[2022-11-30 14:57] LABS: MAGNESIUM 1.8 MG/DL (1.5-2.4); POTASSIUM 3.3 MMOL/L (3.5-5.1)
--- NOTE | 2022-11-30 17:42 | NUR ---
Precedex off for several hours. Patient awake. Nodded head in response to questions. Squeezed hand to command. Spontaneous breathing trial done. Bhavana for several hours then was becoming more restless and looked tired. Placed back on rate. Precedex restarted d/t continue restlessness/agitation. Patient noted to have jerky movements. Hemodynamically stable. Good UO. Bhavana TF well.
--- NOTE | 2022-11-30 18:35 | NUR ---
Problems reprioritized. Patient report given, questions answered & plan of care reviewed with He FRASER.
--- NOTE | 2022-11-30 18:35 | NUR ---
Patient in room ICU 2043. I have received report from Luz and had the opportunity to ask questions and assume patient care.
[2022-11-30] MEDS: HYDROmorphone 1 mg/ml syringe IV PRN (19:24)
[2022-11-30] MEDS: insulin regular, human U-100 3ml vial - multi-dose SQ SCH (20:08)
[2022-11-30] MEDS: insulin glargine (Lantus) pen - multi-dose SQ SCH (20:09)
[2022-11-30] MEDS: nystatin 15 GM powder TP SCH (20:43)
[2022-12-01] VITALS (34 sets, daily range): BP systolic 109–173; BP diastolic 5–63
[2022-12-01] MEDS: furosemide 20 MG/2 ML vial IV SCH ×4 (02:08→20:01)
[2022-12-01] MEDS: insulin regular, human U-100 3ml vial - multi-dose SQ SCH ×4 (02:15→19:49)
[2022-12-01 02:23] LABS: BASOPHILS % (AUTO) 0.2 % (0-1); EOSINOPHILS # (AUTO) 0.1 X10'3 (0-0.9); EOSINOPHILS % (AUTO) 1.1 % (0-6); HEMATOCRIT 25.9 % (42.0-52.0); HEMOGLOBIN 7.9 g/dl (14.0-17.9); LYMPHOCYTES % (AUTO) 7.7 % (21-51); MEAN CORPUSCULAR HEMOGLOBIN 25.4 PG (27.0-31.0); MEAN CORPUSCULAR HGB CONC 30.7 g/dL (33.0-36.5); MEAN CORPUSCULAR VOLUME 82.9 FL (78-98); NEUTROPHILS # (AUTO) 8.5 X10'3 (1.8-7.7); PLATELET COUNT 56 X10'3 (140-440); RED BLOOD COUNT 3.12 X10'6 (4.70-6.10); RED CELL DISTRIBUTION WIDTH 19.8 % (11.5-14.5); WHITE BLOOD COUNT 12.6 X10'3 (4.5-11.0)
[2022-12-01 02:35] LABS: ALANINE AMINOTRANSFERASE 60 U/L (12-78); ALBUMIN 1.4 G/DL (3.4-5.0); ALBUMIN/GLOBULIN RATIO 0.4 (1.1-1.5); ALKALINE PHOSPHATASE 74 IU/L (46-116); ANION GAP 6 (8-16); ASPARTATE AMINO TRANSFERASE 35 U/L (10-37); BILIRUBIN,TOTAL 0.4 MG/DL (0.1-1.0); BLOOD UREA NITROGEN 53 MG/DL (7-18); BUN/CREATININE RATIO 25.7 (5.4-32.0); CALCIUM 7.7 MG/DL (8.5-10.1); CHLORIDE 113 MMOL/L (99-107); CREATININE 2.06 MG/DL (0.60-1.10); GLUCOSE 155 MG/DL (70-104); MAGNESIUM 1.9 MG/DL (1.5-2.4); PHOSPHORUS 4.1 MG/DL (2.3-4.5); POTASSIUM 3.4 MMOL/L (3.5-5.1); SODIUM 154 MMOL/L (135-145); TOTAL CARBON DIOXIDE 35.5 MMOL/L (24-32); TOTAL PROTEIN 4.6 G/DL (6.4-8.2); TRIGLYCERIDES 143 MG/DL (20-135); eGFR 31 ML/MIN
[2022-12-01] MEDS: ipratropium/albuterol 3ml nebule NEB SCH ×6 (02:52→23:06)
[2022-12-01] MEDS: potassium Cl 40MEQ/270ML bag 270 ML IV PRN (03:13)
[2022-12-01 03:43] LABS: ABG BASE EXCESS 8.5 mmol/L (-2.0-2.0); ABG HCO3 32.2 mmol/L (22.0-26.0); ABG OXYGEN SATURATION 91.6 % (94-97); ABG PCO2 (T) 41.3 mmHg (35.0-48.0); ABG PO2 (T) 63.4 mmHg (75.0-100.0); ALLEN'S TEST Modified; FCOHb 0.3 % (0.0-3.9); FMetHb 0.1 % (0.0-1.5); FO2Hb 91.2 % (94-97); PATIENT TEMPERATURE 37.3; PEEP 5 cm H2O; RESPIRATORY RATE 18 b/min; TIDAL VOLUME 500 mL; TOTAL HEMOGLOBIN 8.6 G/dl (14.0-17.9)
[2022-12-01] MEDS: propofol 1000mg/100ml bottle 100 ML IV SCH ×4 (03:44→23:20)
[2022-12-01 05:21] LABS: NUCLEATED RED BLOOD CELLS 1 /100WBC (0-0); TOTAL CELLS COUNTED 100
[2022-12-01 05:22] LABS: ANISOCYTOSIS 2+; HYPOGRANULAR PLATELETS FEW; PLATELET ESTIMATE DECREASED
[2022-12-01 05:23] LABS: ELLIPTOCYTES FEW; POIKILOCYTOSIS FEW; POLYCHROMASIA FEW
[2022-12-01] MEDS: levoFLOXACIN-Levaquin 750MG/D5 150 ML IV SCH (07:44)
[2022-12-01] MEDS: pantoprazole 40MG/NS 100ML BAG 100 ML IV SCH ×2 (07:44→20:00)
[2022-12-01] MEDS: docusate sodium 100mg/10ml UD cup OGT SCH ×2 (07:44→20:00)
[2022-12-01] MEDS: CefTRIAXone/D5W-Rocephin 1gm 50 ML IV SCH (07:44)
[2022-12-01] MEDS: K and/or MAG REPLACEMENT MC SCH ×2 (07:44→20:00)
[2022-12-01] MEDS: nystatin 15 GM powder TP SCH ×3 (07:45→20:02)
[2022-12-01] MEDS: dexmedetomidine inj. 400 MCG in normal saline 100ml IV soln 96 ML IV SCH ×3 (10:45→21:06)
[2022-12-01] MEDS ORDERED: labetalol 20mg/4ml (5mg/ml) syringe IV PRN (11:20)
[2022-12-01] MEDS ORDERED: hydrALAZINE 20mg/ml inj. IV PRN (11:20)
[2022-12-01] MEDS: metoprolol tartrate 25mg tablet OGT SCH ×3 (11:37→20:01)
[2022-12-01] MEDS: acetaZOLAMIDE IV 500mg inj IV SCH (12:26)
--- NOTE | 2022-12-01 17:56 | NUR ---
Patient remains on Precedex and low dose Propofol. Awakens easily and looks to voice but will not follow commands with extremities. Has a repetitive bouncing or turning back and forth of head movement. Hemodynamically stable. On spontaneous mode for several hours and adarsh well. Adarsh TF well. Passed smear of BM. Good UO.
[2022-12-01] MEDS: insulin glargine (Lantus) pen - multi-dose SQ SCH (19:49)
[2022-12-01] MEDS: polyethylene glycol 3350 17gm powd pack PO SCH (20:01)
--- NOTE | 2022-12-01 21:21 | NUR ---
Pt continues to be mainly sedate but when awoken thrashes head back and forth and at risk of dislodging ETT. Seeing as how pt is not going to be extubated tonight I've titrated up propofol and turned off Precedex. In the AM I can restart the precedex and wean down propofol in anticipation of extubation.
[2022-12-01] MEDS: HYDROmorphone 1 mg/ml syringe IV PRN (23:25)
[2022-12-02] VITALS (34 sets, daily range): BP systolic 100–153; BP diastolic 36–55
--- NOTE | 2022-12-02 00:51 | NUR ---
Pt becoming more restlest/agitated t/o the night. Thrashing head back and forth nearly extubating himself more than once. Propofol was titrated up but his BP is limiting that for now, Dilaudid was given to see if pain was an issue to no effect. For this reason his precedex was restarted.
[2022-12-02] MEDS: furosemide 20 MG/2 ML vial IV SCH ×4 (02:39→21:04)
[2022-12-02] MEDS: metoprolol tartrate 25mg tablet OGT SCH ×4 (02:39→21:04)
[2022-12-02] MEDS: insulin regular, human U-100 3ml vial - multi-dose SQ SCH ×4 (02:39→21:20)
[2022-12-02] MEDS: ipratropium/albuterol 3ml nebule NEB SCH ×6 (03:17→23:20)
[2022-12-02 03:46] LABS: BASOPHILS % (AUTO) 0.2 % (0-1); EOSINOPHILS # (AUTO) 0.2 X10'3 (0-0.9); EOSINOPHILS % (AUTO) 1.2 % (0-6); HEMATOCRIT 24.8 % (42.0-52.0); HEMOGLOBIN 7.7 g/dl (14.0-17.9); LYMPHOCYTES # (AUTO) 0.9 X10'3 (1.1-4.8); LYMPHOCYTES % (AUTO) 6.2 % (21-51); MEAN CORPUSCULAR HEMOGLOBIN 25.6 PG (27.0-31.0); MEAN CORPUSCULAR VOLUME 82.6 FL (78-98); MONOCYTES # (AUTO) 3.9 X10'3 (0-0.9); MONOCYTES % (AUTO) 27.1 % (2-12); NEUTROPHILS # (AUTO) 9.4 X10'3 (1.8-7.7); NEUTROPHILS % (AUTO) 65.3 % (42-75); PLATELET COUNT 60 X10'3 (140-440); RED CELL DISTRIBUTION WIDTH 20.2 % (11.5-14.5); WHITE BLOOD COUNT 14.4 X10'3 (4.5-11.0)
[2022-12-02 03:56] LABS: ALANINE AMINOTRANSFERASE 52 U/L (12-78); ALBUMIN 1.4 G/DL (3.4-5.0); ALBUMIN/GLOBULIN RATIO 0.4 (1.1-1.5); ALKALINE PHOSPHATASE 78 IU/L (46-116); ANION GAP 8 (8-16); ASPARTATE AMINO TRANSFERASE 28 U/L (10-37); BILIRUBIN,TOTAL 0.3 MG/DL (0.1-1.0); BLOOD UREA NITROGEN 62 MG/DL (7-18); CALCIUM 7.5 MG/DL (8.5-10.1); CHLORIDE 111 MMOL/L (99-107); CREATININE 1.94 MG/DL (0.60-1.10); GLUCOSE 129 MG/DL (70-104); MAGNESIUM 1.7 MG/DL (1.5-2.4); PHOSPHORUS 4.7 MG/DL (2.3-4.5); SODIUM 152 MMOL/L (135-145); TOTAL CARBON DIOXIDE 33.4 MMOL/L (24-32); TOTAL PROTEIN 4.7 G/DL (6.4-8.2); eGFR 33 ML/MIN
[2022-12-02] MEDS: propofol 1000mg/100ml bottle 100 ML IV SCH (03:56)
[2022-12-02 04:22] LABS: ABG BASE EXCESS 10.9 mmol/L (-2.0-2.0); ABG HCO3 35.3 mmol/L (22.0-26.0); ABG OXYGEN SATURATION 93.9 % (94-97); ABG PCO2 (T) 47.4 mmHg (35.0-48.0); ABG PO2 (T) 69.2 mmHg (75.0-100.0); ALLEN'S TEST Modified; FCOHb 0.3 % (0.0-3.9); FO2Hb 93.6 % (94-97); PATIENT TEMPERATURE 37.1; PEEP 5 cm H2O; RESPIRATORY RATE 18 b/min; TIDAL VOLUME 500 mL; TOTAL HEMOGLOBIN 8.6 G/dl (14.0-17.9)
[2022-12-02] MEDS: dexmedetomidine inj. 400 MCG in normal saline 100ml IV soln 96 ML IV SCH ×3 (04:25→23:51)
[2022-12-02] MEDS: potassium Cl 40MEQ/270ML bag 270 ML IV PRN ×2 (04:25→14:19)
[2022-12-02 05:21] LABS: TOTAL CELLS COUNTED 100
[2022-12-02 05:22] LABS: ANISOCYTOSIS 3+; GIANT PLATELET FEW; LARGE PLATELETS FEW; PLATELET ESTIMATE DECREASED; POLYCHROMASIA FEW
[2022-12-02 05:23] LABS: ELLIPTOCYTES FEW; HYPOCHROMASIA 1+; SCHISTOCYTES FEW
[2022-12-02] MEDS: acetaZOLAMIDE IV 500mg inj IV SCH ×3 (07:37→15:30)
[2022-12-02] MEDS: docusate sodium 100mg/10ml UD cup OGT SCH ×2 (07:37→21:04)
[2022-12-02] MEDS: pantoprazole 40MG/NS 100ML BAG 100 ML IV SCH ×2 (07:38→21:05)
[2022-12-02] MEDS: K and/or MAG REPLACEMENT MC SCH ×2 (08:00→20:00)
[2022-12-02] MEDS: nystatin 15 GM powder TP SCH ×3 (08:00→21:13)
[2022-12-02] MEDS: CefTRIAXone/D5W-Rocephin 1gm 50 ML IV SCH (08:50)
--- NOTE | 2022-12-02 10:41 | NUR ---
F/u 12/02: Pt remains intubated tolerating TF at goal GRV WNL. Noted Propofol at 12.456ml/hr providing 329 kcals/day though appears to be weaning down per EMR; if rate persists will need to adjust EN rate. Noted +22kg wt gain in 2 days 11/28-11/30 unsure if bed scale errors; will continue to use initial wt pending further wt trends. LBM 11/27 w/ smear 12/01 receiving routine colace w/ miralax HS started yesterday and PRN MoM available yet to be given per EMR. Serum Na 152mmol/L this AM down from 154 prior yet to receive full 250ml Q4H free water per MD order 11/29 in EMR. Will continue to follow. Recommendations: 1) Continuous Vital AF at 80mL/hr goal rate to provide 1920 mL volume/day, 2304 kcal, 144g protein, and 1557mL water 2) Monitor Propofol and wt trends for need to adjust EN recs 3) Additional 250mL water flush Q4H per MD; monitor serum Na 4) Prealbumin q Saturday/; daily scaled weights 5) Routine bowel regimen; no significant BM 4 days-utilize PRN meds 6) Advance to regular diet as medically indicated following extubation Addendum: 12/02/22 at [address] Amended: Links added.
[2022-12-02] MEDS: acetaminophen 325mg/10.15ml oral unit dose solution OGT PRN (18:26)
[2022-12-02] MEDS: polyethylene glycol 3350 17gm powd pack PO SCH (21:04)
[2022-12-02] MEDS: insulin glargine (Lantus) pen - multi-dose SQ SCH (21:21)
[2022-12-02] MEDS: HYDROmorphone 1 mg/ml syringe IV PRN (22:26)
[2022-12-03] VITALS (31 sets, daily range): BP systolic 103–156; BP diastolic 38–109
[2022-12-03] MEDS: acetaZOLAMIDE IV 500mg inj IV SCH ×3 (00:32→16:00)
[2022-12-03] MEDS: metoprolol tartrate 25mg tablet OGT SCH ×3 (02:00→13:25)
[2022-12-03] MEDS: furosemide 20 MG/2 ML vial IV SCH ×3 (02:10→13:25)
[2022-12-03 03:15] LABS: HEMOGLOBIN 7.6 g/dl (14.0-17.9); WHITE BLOOD COUNT 15.9 X10'3 (4.5-11.0)
[2022-12-03 03:18] LABS: BASOPHILS % (AUTO) 0.1 % (0-1); EOSINOPHILS # (AUTO) 0.2 X10'3 (0-0.9); EOSINOPHILS % (AUTO) 1.3 % (0-6); HEMATOCRIT 25.2 % (42.0-52.0); LYMPHOCYTES % (AUTO) 6.6 % (21-51); MEAN CORPUSCULAR HEMOGLOBIN 25.3 PG (27.0-31.0); MEAN CORPUSCULAR HGB CONC 30.2 g/dL (33.0-36.5); MEAN CORPUSCULAR VOLUME 83.7 FL (78-98); MEAN PLATELET VOLUME 11.1 FL (7.4-10.4); MONOCYTES % (AUTO) 25.4 % (2-12); NEUTROPHILS # (AUTO) 10.6 X10'3 (1.8-7.7); NEUTROPHILS % (AUTO) 66.6 % (42-75); PLATELET COUNT 71 X10'3 (140-440); RED BLOOD COUNT 3.01 X10'6 (4.70-6.10)
[2022-12-03] MEDS: ipratropium/albuterol 3ml nebule NEB SCH ×3 (03:23→11:47)
[2022-12-03 03:50] LABS: ALANINE AMINOTRANSFERASE 46 U/L (12-78); ALBUMIN 1.5 G/DL (3.4-5.0); ALBUMIN/GLOBULIN RATIO 0.4 (1.1-1.5); ALKALINE PHOSPHATASE 75 IU/L (46-116); ANION GAP 9 (8-16); ASPARTATE AMINO TRANSFERASE 26 U/L (10-37); BILIRUBIN,TOTAL 0.3 MG/DL (0.1-1.0); BLOOD UREA NITROGEN 58 MG/DL (7-18); BUN/CREATININE RATIO 29.6 (5.4-32.0); CALCIUM 7.5 MG/DL (8.5-10.1); CREATININE 1.96 MG/DL (0.60-1.10); GLUCOSE 148 MG/DL (70-104); POTASSIUM 3.7 MMOL/L (3.5-5.1); SODIUM 151 MMOL/L (135-145); TOTAL CARBON DIOXIDE 27.6 MMOL/L (24-32); TOTAL PROTEIN 4.9 G/DL (6.4-8.2); eGFR 33 ML/MIN
[2022-12-03 03:57] LABS: ABG BASE EXCESS 2.1 mmol/L (-2.0-2.0); ABG OXYGEN SATURATION 96.4 % (94-97); ABG PCO2 (T) 39.2 mmHg (35.0-48.0); ALLEN'S TEST Modified; FCOHb 0.2 % (0.0-3.9); FMetHb 0.3 % (0.0-1.5); FO2Hb 95.9 % (94-97); PEEP 5 cm H2O; TOTAL HEMOGLOBIN 8.6 G/dl (14.0-17.9)
[2022-12-03 04:12] LABS: CHLORIDE 114 MMOL/L (99-107)
[2022-12-03 04:47] LABS: ANISOCYTOSIS 2+; GIANT PLATELET FEW; LARGE PLATELETS FEW; NUCLEATED RED BLOOD CELLS 1 /100WBC (0-0); PLATELET ESTIMATE DECREASED; TOTAL CELLS COUNTED 100
[2022-12-03 05:02] LABS: ELLIPTOCYTES FEW; HYPOCHROMASIA 1+; POLYCHROMASIA 1+; SCHISTOCYTES FEW
[2022-12-03] MEDS: docusate sodium 100mg/10ml UD cup OGT SCH (07:51)
[2022-12-03] MEDS: pantoprazole 40MG/NS 100ML BAG 100 ML IV SCH (07:52)
[2022-12-03] MEDS: nystatin 15 GM powder TP SCH (08:00)
[2022-12-03] MEDS: K and/or MAG REPLACEMENT MC SCH (08:00)
[2022-12-03] MEDS: CefTRIAXone/D5W-Rocephin 1gm 50 ML IV SCH (08:27)
[2022-12-03] MEDS: dexmedetomidine inj. 400 MCG in normal saline 100ml IV soln 96 ML IV SCH (09:06)
[2022-12-03] MEDS: propofol 1000mg/100ml bottle 100 ML IV SCH (11:44)
[2022-12-03] MEDS: levoFLOXACIN-Levaquin 750MG/D5 150 ML IV SCH (12:21)
[2022-12-03] MEDS: acetaminophen 325mg/10.15ml oral unit dose solution OGT PRN (13:25)
[2022-12-03] MEDS ORDERED: dexmedetomidine inj. 400 MCG in normal saline 100ml IV soln 96 ML IV PRN ×2 (14:20→14:28)
[2022-12-03] MEDS: HYDROmorphone 1 mg/ml syringe IV PRN ×2 (14:37→19:47)
[2022-12-03] MEDS ORDERED: morphine 4 MG/ML inj SYRINge ONE (14:45)
--- NOTE | 2022-12-03 14:49 | NUR ---
extubated to comfort care family at bedside.
[2022-12-03] MEDS: morphine 10mg/ml inj. IV PRN (15:13)
[2022-12-04] MEDS: HYDROmorphone 1 mg/ml syringe IV PRN (00:25)
--- NOTE | 2022-12-04 00:26 | NUR ---
pt was transferred to the surgical unit by his nurse and the break nurse, of pt has been notified.
--- NOTE | 2022-12-04 00:30 | NUR ---
NO CHANGE TO PREVIOUS ASSESSMENT EXCEPT NOTED. AFTER TRANSFER TO HIS NEW BED HE BECAME SOMEWHAT AGITATED AND IN APPARENT PAIN. I GAVE DILAUDID 1 MG IVP.
--- NOTE | 2022-12-04 00:46 | NUR ---
Patient in room DENI 341. I have received report from Marsha in ICU and had the opportunity to ask questions and assume patient care. Addendum: 12/04/22 at 0047 by Otilio Uribe RN Amended: Links added.
[2022-12-04] MEDS: morphine 10mg/ml inj. IV PRN ×3 (01:45→23:57)
--- NOTE | 2022-12-04 06:45 | NUR ---
Problems reprioritized. Patient report given, questions answered & plan of care reviewed with SUSANNA. Addendum: 12/04/22 at 0646 by Otilio Uribe RN Amended: Links added.
--- NOTE | 2022-12-04 10:42 | NUR ---
Reassessment: Pt has been extubated. TF discontinued and code status has been changed to DNR with comfort care. Will continue to follow per LOS. Recommendations: 1) Bowel care per comfort care measures Addendum: 12/04/22 at [address] Amended: Links added.
[2022-12-04 11:00] VITALS: BP 126/52
[2022-12-04] MEDS: morphine 10mg/0.5ml (conc. morphine) oral syringe PO PRN ×3 (13:33→20:34)
--- NOTE | 2022-12-04 18:52 | NUR ---
Patient in room DENI 341. I have received report from EVELIO Godwin and had the opportunity to ask questions and assume patient care.
--- NOTE | 2022-12-04 19:53 | NUR ---
Problems reprioritized. Patient report given, questions answered & plan of care reviewed with EVELIO MARIE.
[2022-12-04 22:00] VITALS: BP 142/52
[2022-12-05] MEDS: HYDROmorphone 1 mg/ml syringe IV PRN (03:48)
[2022-12-05 06:00] VITALS: BP 143/51
--- NOTE | 2022-12-05 06:31 | NUR ---
Problems reprioritized. Patient report given, questions answered & plan of care reviewed with EVELIO Witt.
--- NOTE | 2022-12-05 07:08 | NUR ---
Patient in room DENI 341. I have received report from Jennifer FRASER, patient resting comfortably at this time and had the opportunity to ask questions and assume patient care.
[2022-12-05 10:00] VITALS: BP 158/56
[2022-12-05] MEDS: morphine 10mg/ml inj. IV PRN (10:08)
[2022-12-05] MEDS: LORazepam 2 mg/ml vial IV PRN ×2 (11:30→16:43)
[2022-12-05] MEDS: morphine 10mg/0.5ml (conc. morphine) oral syringe PO SCH (15:45)
[2022-12-05 18:00] VITALS: BP 132/63
--- NOTE | 2022-12-05 18:30 | NUR ---
Patient in room DENI 341. I have received report from EVELIO Witt and had the opportunity to ask questions and assume patient care.
--- NOTE | 2022-12-05 18:39 | NUR ---
Problems reprioritized. Patient report given, questions answered & plan of care reviewed with Jennifer FRASER.
[2022-12-06] MEDS: morphine 10mg/0.5ml (conc. morphine) oral syringe PO SCH (00:06)
[2022-12-06] MEDS: LORazepam 2 mg/ml vial IV PRN (03:12)
--- NOTE | 2022-12-06 04:30 | NUR ---
RN IS TO DOCUMENT YES TO ALL APPLICABLE AREAS Pronouncement of : 1. Time Physician Notified:329 2. Date of :12/06/22 3. Time of : 327 4. DNR/Withdraw life support documented:yes 5. Monitor strip has been placed on chart:yes 6. Assessment process is of one-minute duration and includes following criteria: a) Patient is unresponsive to all stimuli: yes b) Pupils fixed and non-reactive:yes c) Auscultation of precordium reveals absence of heart tones:yes d) Auscultation of lungs reveals absence of breath sounds:yes e) Absence of blood pressure / all vital signs:yes f) QRS complexes are not present on monitor / EKG strip:yes g) Pacer spikes without capture:yes 4. Comments:
--- NOTE | 2022-12-06 05:51 | NUR ---
had just checked on pt at 0304, repositioning and oral care. pt a bit restless, so I went to get the medication for him. upon my return to room at 314 with the meds, pt was not breathing. stimulated and no response. auscultated chest and heard nothing. telemetry placed and strip printed. notified. family notified by phone. donor network notified. Cristy notified. pt cleaned and wrapped. awaiting for Cristy to poultry picker. pt wedding ring will be picked up by the .
--- NOTE | 2022-12-06 06:40 | NUR ---
at 0630 Cristy arrived for the pt. paperwork was filled in, copies in the chart. security transferred body and took out of facility. personal effects at nurse desk for burr picker from the .
--- NOTE | 2022-12-06 08:10 | NUR ---
Patients Miryam came by this morning after patient had been taken to [facility]. Patients wedding band was given to Miryam
--- NOTE | 2022-12-06 18:17 | NUR ---
late entry. Approximately at 0620, [facility] arrived to sweet pickle maker pt. paperwork completed. pt was taken from the floor at 0630.
[2022-12-10 16:15] LABS: OCCULT BLOOD STOOL POSITIVE (Neg)
== END 2022-12-06 06:30 | DRG 870 ==
LOC: ER 10:06 → UNDOADMIN 15:03 → ICU 2S 15:03 → SUR 3N 12-04 00:12
PROVIDERS: ADMIT Internal Medicine Critical Care Medicine; ATTEND Internal Medicine Critical Care Medicine
PROC: 5A1955Z Respiratory Ventilation, Greater than 96 Consecutive Hours (ICD-10-PCS; principal; 2022-11-26)
PROC: 0BH17EZ Insertion of Endotracheal Airway into Trachea, Via Natural or Artificial Opening (ICD-10-PCS; 2022-11-26)
PROC: 30233N1 Transfusion of Nonautologous Red Blood Cells into Peripheral Vein, Percutaneous Approach (ICD-10-PCS; 2022-11-26)
PROC: 02HV33Z Insertion of Infusion Device into Superior Vena Cava, Percutaneous Approach (ICD-10-PCS; 2022-11-26)
PROC: B548ZZA Ultrasonography of Superior Vena Cava, Guidance (ICD-10-PCS; 2022-11-26)
PROC: 5A12012 Performance of Cardiac Output, Single, Manual (ICD-10-PCS; 2022-11-26)
PROC: 0W3P8ZZ Control Bleeding in Gastrointestinal Tract, Via Natural or Artificial Opening Endoscopic (ICD-10-PCS; 2022-11-26)
DX: A41.9 Sepsis, unspecified organism (principal); J96.00 Acute respiratory failure, unspecified whether with hypoxia or hypercapnia; N17.0 Acute kidney failure with tubular necrosis; J18.9 Pneumonia, unspecified organism; K26.4 Chronic or unspecified duodenal ulcer with hemorrhage; K25.4 Chronic or unspecified gastric ulcer with hemorrhage; G93.40 Encephalopathy, unspecified; E87.3 Alkalosis; E87.0 Hyperosmolality and hypernatremia; R74.01 Elevation of levels of liver transaminase levels; Z51.5 Encounter for palliative care; Z66 Do not resuscitate; R68.0 Hypothermia, not associated with low environmental temperature; I10 Essential (primary) hypertension; B96.5 Pseudomonas (aeruginosa) (mallei) (pseudomallei) as the cause of diseases classified elsewhere; E87.70 Fluid overload, unspecified; R00.1 Bradycardia, unspecified; I46.9 Cardiac arrest, cause unspecified; E87.6 Hypokalemia; D64.9 Anemia, unspecified; D69.6 Thrombocytopenia, unspecified; R57.8 Other shock; G89.29 Other chronic pain; M54.9 Dorsalgia, unspecified; M54.50 Low back pain, unspecified; R19.7 Diarrhea, unspecified; R26.2 Difficulty in walking, not elsewhere classified; Z87.891 Personal history of nicotine dependence; T50.1X5A Adverse effect of loop [high-ceiling] diuretics, initial encounter; Y92.230 Patient room in hospital as the place of occurrence of the external cause
CPT/HCPCS: 36415; 36430; 36600; 43243; 43255; 71045; 74176; 80053; 81001; 82272; 82803; 82948; 83036; 83605; 83690; 83735; 83880; 84100; 84132; 84134; 84145; 84478; 84484; 85007; 85018; 85025; 85027; 85610; 85730; 86885; 86900; 86901; 86920; 87040; 87070; 87077; 87081; 87186; 92950; 93005; 93306; 94002; 94003; 94640; 94760; 97110; 97161; 97530; 99152; 99153; 99291; 99292; A4333; A4349; A4615; A5200; A6212; A6213; A6258; A6449; A7015; C9113; G0378; J0171; J0360; J0696; J1120; J1160; J1170; J1815; J1940; J1956; J2060; J2250; J2270; J2274; J2354; J2405; J2704; J3010; J3475; J3480; J3490; J7030; J7040; J7050; J7070; P9016